=== PATIENT | male | born 1985 | race African-American/Black ===

== ENCOUNTER 2023-03-20 15:04 | Emergency (ER) | payer MEDICAID, OTHER ==
[~2023-03-20] VITALS: Ht 177.8 cm; Wt 100.0 kg
[2023-03-20 15:16] VITALS: BP 132/86; PULSE 83; RESP 18; TEMP 98.8; O2SAT 98
== END 2023-03-20 16:18 | disposition home or self-care (01) ==
LOC: ER 15:04
DX: R07.89 Other chest pain (principal)
CPT/HCPCS: 71045; 93005; 99283